=== PATIENT | male | born 1970 | race Caucasian/White ===

== ENCOUNTER → 2020-03-06 | Outpatient (CLI) | payer BC | LOC: CARD 13:06 | PROVIDERS: ATTEND Internal Medicine Cardiovascular Disease | DX: I51.7 Cardiomegaly (principal); R42 Dizziness and giddiness; E66.9 Obesity, unspecified | CPT/HCPCS: 93306 ==

== ENCOUNTER → 2022-05-29 | Outpatient (CLI) | payer BC ==
[2022-05-29 10:41] VITALS: BP 135/82
--- NOTE | 2022-05-29 17:42 | Cardiology Stress Test Report ---
Stress Test Report Date of Procedure/Referring: Date of Procedure: May 29, 2022 PCP No,Local Physician Admitting Physician Admitting Physician: Attending Physician: Mary Nelson MD Indications: CP Baseline Heart Rate: 81 Baseline Blood Pressure: Blood Pressure Systolic: 135 Blood Pressure Diastolic: 82 Baseline EKG: Baseline EKG: NSR Summary/Conclusion: Summary: In summary, the patient started exercising with a baseline heart rate, blood pressure and EKG mentioned above Patient was able to exercise for a total of 8 minutes on Lionel protocol, METs 9.7 Maximum heart rate 154 Maximum blood pressure 179/80 Stress EKG, Minimal nondiagnostic changes Recovery EKG , Return to baseline Conclusion: 1. Good exercise tolerance for a total of 8 minutes on Lionel protocol, 9.7 METs, achieving 90 percent of maximum expected heart rate 2. Minimal nondiagnostic EKG changes with exercise returned to baseline during recovery 3. Occasional PVCs and ventricular couplets noted during exercise resolved in recovery MARY NELSON MD May 29, 2022 17:42
== END ==
LOC: CARD 10:19
PROVIDERS: ATTEND Internal Medicine Cardiovascular Disease
DX: R07.9 Chest pain, unspecified (principal); R00.2 Palpitations
CPT/HCPCS: 93017